=== PATIENT | female | born 1955 | race Caucasian/White ===

== ENCOUNTER 2016-11-29 10:09 | Emergency (ER) | payer OTHER ==
[2016-11-29 10:28] LABS: BASOPHIL 0.9 % (0-2); EOSINOPHIL 4.3 % (0-5); HCT 44.5 % (37.0-47.0); HGB 15.2 g/dl (12.5-16.0); MCH 30.6 pg (25.0-31.0); MCHC 34.2 g/dL (32.0-36.0); MCV 89.7 fL (78.0-100.0); MONOCYTE 7.8 % (0-12); MPV 8.8 fL (6.0-9.5); PLT 417 K/uL (150-400); RBC 4.96 M/uL (4.20-5.40); RDW 13.6 % (11.5-14.0); WBC 8.5 K/uL (4.0-10.5)
[2016-11-29 10:43] LABS: PRO-BNP 45 pg/mL (0-125); TROPONIN T < 0.010 ng/mL
[2016-11-29 10:44] LABS: ALBUMIN 4.5 g/dL (3.5-5.0); BILIRUBIN - TOTAL 0.4 mg/dL (0.1-1.0); CREATININE 0.8 mg/dL (0.5-1.0); GLOBULIN (CALCULATION) 3.2 g/dL (2.2-4.2); POTASSIUM 4.4 mmol/L (3.5-5.1); TOTAL PROTEIN 7.7 g/dL (6.4-8.3)
== END 2016-11-29 14:20 | disposition home or self-care (01) ==
LOC: FER 10:09
PROVIDERS: Emergency Medicine
DX: J44.1 Chronic obstructive pulmonary disease with (acute) exacerbation (principal); R91.8 Other nonspecific abnormal finding of lung field; I10 Essential (primary) hypertension; Z79.899 Other long term (current) drug therapy; Z88.8 Allergy status to other drugs, medicaments and biological substances
CPT/HCPCS: 36415; 71020; 71260; 80053; 83880; 84484; 85025; 93005; 94640; J2405; J2930; Q9967

== ENCOUNTER → 2016-12-28 | Day surgery (SDC) | payer OTHER ==
[~2016-12-28] VITALS: Ht 170.2 cm; Wt 83.0 kg
[2016-12-28 09:15] LABS: BASOPHIL 0 % (0-2); EOSINOPHIL 2.2 % (0-5); HCT 30.4 % (37.0-47.0); HGB 10.7 g/dl (12.5-16.0); MCH 31.7 pg (25.0-31.0); MCHC 35.2 g/dL (32.0-36.0); MCV 89.9 fL (78.0-100.0); MONOCYTE 23.2 % (0-12); MPV 8.2 fL (6.0-9.5); NEUTROPHIL 3.6 % (41-80); PLT 417 K/uL (150-400); RBC 3.38 M/uL (4.20-5.40); RDW 12.2 % (11.5-14.0)
[2016-12-28 09:20] LABS: WBC 2.2 K/uL (4.0-10.5)
[2016-12-28 09:24] LABS: ALBUMIN 3.9 g/dL (3.5-5.0); BILIRUBIN - TOTAL 0.2 mg/dL (0.1-1.0); GLOBULIN (CALCULATION) 2.7 g/dL (2.2-4.2); MAGNESIUM 1.63 mg/dL (1.40-2.10); TOTAL PROTEIN 6.6 g/dL (6.4-8.3)
== END | disposition home or self-care (01) ==
LOC: FAS 08:46
PROVIDERS: Nurse Practitioner Acute Care
DX: I87.2 Venous insufficiency (chronic) (peripheral) (principal); Z88.5 Allergy status to narcotic agent; Z88.8 Allergy status to other drugs, medicaments and biological substances; G43.909 Migraine, unspecified, not intractable, without status migrainosus; K21.9 Gastro-esophageal reflux disease without esophagitis; I10 Essential (primary) hypertension; J44.9 Chronic obstructive pulmonary disease, unspecified; Z79.899 Other long term (current) drug therapy; F41.9 Anxiety disorder, unspecified; F32.9 Major depressive disorder, single episode, unspecified; M81.0 Age-related osteoporosis without current pathological fracture; Z87.891 Personal history of nicotine dependence
CPT/HCPCS: 36415; 71010; 76000; 80053; 83735; 85025; C1788; J1644; J2405; J2704; J3010

== ENCOUNTER 2020-09-25 14:51 | Emergency (ER) | payer MEDICARE ==
[~2020-09-25 14:51] MED LIST: BACLOFEN 10MG T10 MG PO; PERCOCET 5-3251 EACH PO; XANAX0.5 M1 PO
[2020-09-25 15:53] LABS: BASOPHIL 0.4 % (0-2); EOSINOPHIL 0.2 % (0-5); HCT 36.5 % (37.0-47.0); HGB 12.4 g/dl (12.5-16.0); MCV 94.1 fL (78.0-100.0); MONOCYTE 1.3 % (0-12); MPV 8.4 fL (6.0-9.5); NEUTROPHIL 83.7 % (41-80); NRBC 0; PLT 357 K/uL (150-400); RBC 3.88 M/uL (4.20-5.40); RDW 14.7 % (11.5-14.0); WBC 5.5 K/uL (4.0-10.5)
[2020-09-25 16:13] LABS: ALBUMIN 3.4 g/dL (3.4-5.0); BILIRUBIN - TOTAL 0.5 mg/dL (0.2-1.0); BUN/CREAT RATIO (CALC) 45.8 RATIO; CREATININE 0.59 mg/dL (0.51-0.95); GLOBULIN (CALCULATION) 3.6 g/dL; POTASSIUM 3.2 mmol/L (3.5-5.1)
[2020-09-25] MEDS ORDERED: OMEPRAZOLE40 MG PO (18:09)
== END 2020-09-25 18:28 | disposition home or self-care (01) ==
LOC: FER 14:51
PROVIDERS: Emergency Medicine
DX: K29.00 Acute gastritis without bleeding (principal); C34.90 Malignant neoplasm of unspecified part of unspecified bronchus or lung; Z90.49 Acquired absence of other specified parts of digestive tract; Z88.8 Allergy status to other drugs, medicaments and biological substances; Z79.899 Other long term (current) drug therapy
CPT/HCPCS: 36415; 71046; 80053; 83690; 85025; J1642; Q9967

== ENCOUNTER 2021-02-05 14:50 | Emergency (ER) | payer MEDICARE ==
[~2021-02-05 14:50] MED LIST changes: +OMEPRAZOLE40 MG PO
== END 2021-02-05 17:35 | disposition home or self-care (01) ==
LOC: FER 14:50
DX: S20.212A Contusion of left front wall of thorax, initial encounter (principal); S40.012A Contusion of left shoulder, initial encounter; Z87.891 Personal history of nicotine dependence; Z88.8 Allergy status to other drugs, medicaments and biological substances; W01.0XXA Fall on same level from slipping, tripping and stumbling without subsequent striking against object, initial encounter; Y92.000 Kitchen of unspecified non-institutional (private) residence as the place of occurrence of the external cause
CPT/HCPCS: 73000

== ENCOUNTER 2021-11-26 17:17 | Emergency (ER) | payer MEDICARE ==
[2021-11-26 18:41] LABS: BASOPHIL 0.5 % (0-2); EOSINOPHIL 1.6 % (0-7); HCT 44.3 % (37.0-47.0); LYMPHOCYTE 9.2 % (15-48); MCH 32.2 pg (25.0-31.0); MCHC 33.9 g/dL (32.0-36.0); MCV 95.1 fL (78.0-100.0); MPV 8.9 fL (6.0-9.5); NEUTROPHIL 81.4 % (41-80); NRBC 0; PLT 510 K/uL (150-400); RBC 4.66 M/uL (4.20-5.40); RDW 12.5 % (11.5-14.0); WBC 11.9 K/uL (4.0-10.5)
[2021-11-26 18:44] LABS: INR 0.85 (0.9-1.2); PROTHROMBIN TIME 11.1 SECONDS (11.8-13.4)
[2021-11-26 18:45] LABS: PTT 29.6 SECONDS (24.4-34.7)
[2021-11-26 18:55] LABS: ALBUMIN 2.9 g/dL (3.4-5.0); BILIRUBIN - TOTAL 0.1 mg/dL (0.2-1.0); BUN/CREAT RATIO (CALC) 23.3 RATIO; CREATININE 0.73 mg/dL (0.51-0.95); POTASSIUM 3.3 mmol/L (3.5-5.1); TOTAL PROTEIN 6.9 g/dL (6.4-8.2)
[2021-11-26] MEDS ORDERED: ATIVAN0.5 M1 PO (20:19)
[2021-11-26] MEDS ORDERED: MORPHINE 110 MG/0.5 PO (20:19)
== END 2021-11-26 21:00 | disposition home or self-care (01) ==
LOC: FER 17:17
PROVIDERS: Emergency Medicine
DX: R07.9 Chest pain, unspecified (principal); F17.200 Nicotine dependence, unspecified, uncomplicated; Z88.8 Allergy status to other drugs, medicaments and biological substances
CPT/HCPCS: 36415; 80053; 83605; 83880; 84145; 84484; 85025; 85379; 85610; 85730; 93005